=== PATIENT | female | born 1975 | race American Indian/Alaskan Native ===

== ENCOUNTER 2020-11-27 15:01 | Emergency (ER) | payer SELFPAY | END 2020-11-27 19:00 | disposition left against medical advice (07) | LOC: ED 15:01 | DX: R06.02 Shortness of breath (principal); Z53.21 Procedure and treatment not carried out due to patient leaving prior to being seen by health care provider ==

== ENCOUNTER 2021-10-09 07:29 | Emergency (ER) | payer OTHER ==
[2021-10-09 07:55] VITALS: BP 149/85
--- NOTE | 2021-10-09 08:15 | Emergency Department Report ---
ED General Adult HPI - General Chief complaint: Headache Stated complaint: HEADACHE AND UPPER BACK PAIN Time Seen by Provider: 10/09/21 08:00 Source: patient Mode of arrival: Ambulatory Limitations: No Limitations - History of Present Illness Initial comments: This 46-year-old female presents the emerge department with chief complaint of gradual onset headache over the past 4 days. She describes this as in both sides of her temples and radiates into the neck on both sides. Pain is aggravated with light and sound and there are no alleviating factors. She has tried Tylenol Motrin [id number] with no relief in her symptoms. She has a history of previous chronic migraines but reports she has not had 1 in many years. She also reports an associated issue of dysuria and urinary frequency. She denies any associated fever, chills, night sweats, dizziness, blurry vision, neck stiffness, chest pain, shortness of breath, weakness or any other associated symptoms. Severity scale (0 -10): 9 - Related Data Previous Rx's Medication Instructions Recorded Last Taken Type Butalb/Acetaminophen/Caffeine 1 cap PO Q6HR PRN #12 cap 10/09/21 Unknown Rx [Fioricet 50-300-40 mg CAP] Nitrofurantoin Maries/M-Cryst 100 mg PO Q12HR #14 capsule 10/09/21 Unknown Rx [Macrobid CAP] methOCARBAMOL [Robaxin TAB] 0 mg PO Q6HR #20 tablet 10/09/21 Unknown Rx Allergies Allergy/AdvReac Type Severity Reaction Status Date / Time aspirin Allergy Hives Verified 10/09/21 07:55 codeine Allergy Rash Verified 10/09/21 07:55 Penicillins Allergy Rash Verified 10/09/21 07:55 ED Review of Systems ROS: Stated complaint: HEADACHE AND UPPER BACK PAIN Other details as noted in HPI Constitutional: denies: chills, fever Eyes: denies: eye pain, eye discharge, vision change ENT: denies: ear pain, throat pain Respiratory: denies: cough, shortness of breath, wheezing Cardiovascular: denies: chest pain, palpitations Endocrine: no symptoms reported Gastrointestinal: denies: abdominal pain, nausea, diarrhea Genitourinary: denies: urgency, dysuria, discharge Musculoskeletal: denies: back pain, joint swelling, arthralgia Skin: denies: rash, lesions Neurological: as per HPI, headache. denies: weakness, paresthesias Psychiatric: denies: anxiety, depression Hematological/Lymphatic: denies: easy bleeding, easy bruising ED Past Medical Hx - Past Medical History Hx Hypertension: Yes Hx Arthritis: Yes (RA) Additional medical history: anemia - Surgical History Additional Surgical History: tubal ligation - Social History Smoking Status: Current Every Day Smoker Substance Use Type: None - Medications Home Medications: Home Medications Medication Instructions Recorded Confirmed Last Taken Type Butalb/Acetaminophen/Caffeine 1 cap PO Q6HR PRN #12 cap 10/09/21 Unknown Rx [Fioricet 50-300-40 mg CAP] Nitrofurantoin Maries/M-Cryst 100 mg PO Q12HR #14 capsule 10/09/21 Unknown Rx [Macrobid CAP] methOCARBAMOL [Robaxin TAB] 0 mg PO Q6HR #20 tablet 10/09/21 Unknown Rx ED Physical Exam - General Limitations: No Limitations General appearance: alert, in no apparent distress - Head Head exam: Present: atraumatic, normocephalic - Eye Eye exam: Present: normal appearance, PERRL, EOMI Pupils: Present: normal accommodation - ENT ENT exam: Present: normal exam, normal orophraynx, mucous membranes moist - Neck Neck exam: Present: normal inspection, full ROM. Absent: tenderness, meningismus - Respiratory Respiratory exam: Present: normal lung sounds bilaterally. Absent: respiratory distress, wheezes, rales, rhonchi, stridor - Cardiovascular Cardiovascular Exam: Present: regular rate, normal rhythm, normal heart sounds. Absent: systolic murmur, diastolic murmur, rubs, gallop - GI/Abdominal GI/Abdominal exam: Present: soft, normal bowel sounds. Absent: distended, tenderness, guarding, rebound, rigid - Extremities Exam Extremities exam: Present: normal inspection, full ROM, normal capillary refill. Absent: tenderness, calf tenderness - Back Exam Back exam: Present: normal inspection, full ROM. Absent: tenderness, CVA tenderness (R), CVA tenderness (L) - Neurological Exam Neurological exam: Present: alert, oriented X3, normal gait - Psychiatric Psychiatric exam: Present: normal affect, normal mood - Skin Skin exam: Present: warm, dry, intact, normal color. Absent: rash ED Course Vital Signs 10/09/21 07:54 Temperature 98.3 F Pulse Rate 76 Respiratory 16 Rate Blood Pressure 149/85 [Right] O2 Sat by Pulse 100 Oximetry ED Medical Decision Making - Lab Data Lab Results 10/09/21 Range/Units 08:26 Urine Color Yellow (Yellow) Urine Turbidity Slightly-cloudy (Clear) Urine pH 5.0 (5.0-7.0) Ur Specific [place] 1.021 (1.003-1.030) Urine Protein <15 mg/dl (Negative) mg/dL Urine Glucose (UA) Neg (Negative) mg/dL Urine Ketones Neg (Negative) mg/dL Urine Blood Neg (Negative) Urine Nitrite Neg (Negative) Ur Reducing Substances Not Reportable Urine Bilirubin Neg (Negative) Urine Ictotest Not Reportable Urine Urobilinogen < 2.0 (<2.0) mg/dL Ur Leukocyte Esterase Tr (Negative) Urine WBC (Auto) 19.0 H (0.0-6.0) /HPF Urine RBC (Auto) 5.0 (0.0-6.0) /HPF U Epithel Cells (Auto) 39.0 H (0-13.0) /HPF Urine Bacteria (Auto) 4+ (Negative) /HPF Urine Mucus 2+ /HPF Urine HCG, Qual Negative (Negative) - Medical Decision Making Urine was consistent with UTI will treat with oral antibiotics. We will send the patient with Fioricet muscle relaxer and recommend return the emerge department change worsening symptoms. Recommended primary care follow-up to ensure that the urine is properly treated with the antibiotic given to follow the urine culture. Patient was agreeable this plan all of her questions were answered. Recommend she return the emerge department change worsening symptoms. She verbalized understand the diagnosis, treatment plan and follow-up instructions. - Differential Diagnosis UTI, migraine, tension headache Critical care attestation.: If time is entered above; I have spent that time in minutes in the direct care of this critically ill patient, excluding procedure time. ED Disposition Clinical Impression: Acute headache Qualifiers: Headache type: tension-type Intractability: not intractable Qualified Code(s): G44.209 - Tension-type headache, unspecified, not intractable Acute cystitis Qualifiers: Hematuria presence: with hematuria Qualified Code(s): N30.01 - Acute cystitis with hematuria Disposition: HOME / SELF CARE / HOMELESS Is pt being admited?: No Condition: Stable Instructions: Tension Headache, Adult, [id number], Urinary Tract Infection, Adult Prescriptions: Butalb/Acetaminophen/Caffeine [Fioricet 50-300-40 mg CAP] 1 cap PO Q6HR PRN #12 cap PRN Reason: Headache Nitrofurantoin Maries/M-Cryst [Macrobid CAP] 100 mg PO Q12HR #14 capsule methOCARBAMOL [Robaxin TAB] 0 mg PO Q6HR #20 tablet Referrals: PRIMARY CARE, [Primary Care Provider] - 3-5 Days [facility] [Provider Group] - 3-5 Days Forms: Work/School Release Form(ED) Time of Disposition: 10:09
[2021-10-09 08:44] LABS: HCG Qualitative,Urine Negative (Negative)
[2021-10-09 09:54] LABS: Bacteria,Urine 4+ /HPF (Negative); Bilirubin,Urine NEG (Negative); Blood,Urine NEG (Negative); Color,Urine Yellow (Yellow); Mucus,Urine 2+ /HPF; Protein,Urine <15 mg/dL mg/dL (Negative); Urobilinogen,Urine < 2.0 mg/dL (<2.0)
== END 2021-10-09 10:31 | disposition home or self-care (01) ==
LOC: ED 07:29
DX: R51.9 Headache, unspecified (principal); N30.00 Acute cystitis without hematuria; I10 Essential (primary) hypertension; M19.90 Unspecified osteoarthritis, unspecified site; F17.200 Nicotine dependence, unspecified, uncomplicated; Z88.0 Allergy status to penicillin; Z91.09 Other allergy status, other than to drugs and biological substances
CPT/HCPCS: 81001; 81025; 87086; 87186; 99283